=== PATIENT | female | born 1975 | race African-American/Black ===

== ENCOUNTER 2018-12-27 11:21 | Emergency (ER) | payer MEDICAID ==
[~2018-12-27] VITALS: Ht 172.7 cm; Wt 78.9 kg
[~2018-12-27 11:21] MED LIST: POTA20TA83 PO
[2018-12-27 11:35] VITALS: BP_SYST 158
--- NOTE | 2018-12-27 11:35 | NUR ---
Patient to ER bed 02 for evaluation. Side rails up. Report given to Kesha TONG.
--- NOTE | 2018-12-27 11:51 | NUR ---
ER Dr. CHRISTIE at bedside examining patient.
--- NOTE | 2018-12-27 11:53 | NUR ---
PATIENT CAME IN COMPLAINING OF COUGH SINCE SHE GOT BACK FROM [place]. PATIENT STATES SHE HAD SORE THROAT BUT WENT AWAY. PATIENT NOT SPITTING OUT ANYTHING. PATIENT ALSO COMPLAINING OF NUMBNESS IN LEFT 2ND TOE. 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 PATIENT NOT COMPLAINING OF PAIN. PATIENT STATES SHE TOOK TYLENOL BEFORE COMING. PATIENT ALERT AND ORIENTED X4.
--- NOTE | 2018-12-27 12:04 | NUR ---
XRAYS BEING DONE AT BEDSIDE
--- NOTE | 2018-12-27 12:21 | NUR ---
CLEANED UP PATIENT'S TOE WITH NS AND GAUZE. PUT ON BANDAGE.
--- NOTE | 2018-12-27 12:26 | NUR ---
Patient given written and verbal discharge instructions and verbalizes understanding. ER MD Noyola discussed with patient the results and treatment provided. Patient in stable condition. ID arm band removed. Rx of Tevin Gonzalez given. Patient educated on pain management and to follow up with PMD. Pain Scale 0. Opportunity for questions provided and answered. Medication side effect fact sheet provided.
[2018-12-27 12:31] VITALS: BP_SYST 145
== END 2018-12-27 12:26 | disposition home or self-care (01) ==
LOC: SED 11:21
DX: S90.32XA Contusion of left foot, initial encounter (principal); S90.415A Abrasion, left lesser toe(s), initial encounter; I10 Essential (primary) hypertension; Z86.2 Personal history of diseases of the blood and blood-forming organs and certain disorders involving the immune mechanism; W22.8XXA Striking against or struck by other objects, initial encounter; Y93.89 Activity, other specified; Y92.89 Other specified places as the place of occurrence of the external cause; Y99.8 Other external cause status
CPT/HCPCS: 99283

== ENCOUNTER 2019-04-24 08:24 | Emergency (ER) | payer MEDICAID ==
[~2019-04-24] VITALS: Ht 175.3 cm; Wt 90.7 kg
[2019-04-24 08:34] VITALS: BP_SYST 143
[2019-04-24 09:43] LABS: BASOPHILS % (AUTO) 0.5 % (0.0-2.0); EOSINOPHILS # (AUTO) 0.1 K/uL (0.0-0.4); EOSINOPHILS % (AUTO) 1.2 % (0.0-4.0); HEMATOCRIT 39.6 % (36-48); HEMOGLOBIN 12.9 g/dL (12.0-16.0); LYMPHOCYTES # (AUTO) 1.3 K/uL (1.0-5.5); LYMPHOCYTES % (AUTO) 21.5 % (20.5-51.5); MEAN CORPUSCULAR HEMOGLOBIN 31 pg (27-31); MEAN CORPUSCULAR HGB CONC 33 % (32-36); MEAN CORPUSCULAR VOLUME 94 fL (79.0-98.0); MONOCYTES # (AUTO) 0.5 K/uL (0.0-1.0); MONOCYTES % (AUTO) 8.7 % (1.7-9.3); NEUTROPHILS # (AUTO) 4.2 K/uL (1.8-7.7); NEUTROPHILS % (AUTO) 68.1 % (40.0-70.0); PLATELET COUNT (AUTO) 374 K/uL (130-430); WHITE BLOOD COUNT (AUTO) 6.2 K/uL (4.8-10.8)
[2019-04-24 10:00] LABS: CALCIUM 8.8 mg/dL (8.4-11.0); CREATININE 0.72 mg/dL (0.55-1.30); POTASSIUM 3.8 mmol/L (3.5-5.1)
[2019-04-24 10:13] LABS: ALBUMIN 3.6 g/dL (3.4-4.8); FREE T4 (FREE THYROXINE) 0.9 ng/dl (0.8-1.5); THYROID STIMULATING HORMONE 1.38 uIu/mL (0.36-3.74); TOTAL BILIRUBIN 0.2 mg/dL (0.0-1.0)
[2019-04-24 10:43] VITALS: BP_SYST 134
== END 2019-04-24 10:41 | disposition home or self-care (01) ==
LOC: SED 08:24
DX: R00.2 Palpitations (principal); R53.1 Weakness; R06.00 Dyspnea, unspecified; I10 Essential (primary) hypertension; Z86.2 Personal history of diseases of the blood and blood-forming organs and certain disorders involving the immune mechanism; Z79.899 Other long term (current) drug therapy
CPT/HCPCS: 36415; 71045; 80053; 81002; 81025; 82550-TC; 84439; 84443-TC; 84479; 84484; 85025; 85379; 93005; 99284

== ENCOUNTER 2020-05-21 13:06 | Emergency (ER) | payer MEDICAID ==
[~2020-05-21] VITALS: Ht 172.7 cm; Wt 78.9 kg
[2020-05-21 13:06] VITALS: BP_SYST 98
[2020-05-21 15:42] VITALS: BP_SYST 98
== END 2020-05-21 15:40 | disposition home or self-care (01) ==
LOC: SED 13:06
DX: S16.1XXA Strain of muscle, fascia and tendon at neck level, initial encounter (principal); I10 Essential (primary) hypertension; Z86.2 Personal history of diseases of the blood and blood-forming organs and certain disorders involving the immune mechanism; V49.49XA Driver injured in collision with other motor vehicles in traffic accident, initial encounter; Y93.89 Activity, other specified; Y92.413 State road as the place of occurrence of the external cause; Y99.8 Other external cause status
CPT/HCPCS: 71045; 72040-TC; 99284

== ENCOUNTER 2021-05-06 22:09 | Inpatient (IN) | payer MEDICAID, SELFPAY ==
[~2021-05-06] VITALS: Ht 172.7 cm; Wt 108.4 kg
[2021-05-06 22:15] VITALS: BP_SYST 139
--- NOTE | 2021-05-06 22:49 | NUR ---
Patient to ER bed 3 to [facility] for evaluation. Side rails up. Report given to Annie TONG. Addendum: 05/07/21 at 0103 by [email or web address] Amendment undone in EDM - 05/07/21 at 0103 by SDEDCJM chaperoned by myself.
--- NOTE | 2021-05-06 22:54 | NUR ---
PT ARRIVED TO ER FOR COMPLAINTS OF VAGINAL BLEEDING SINCE 04/23/21. PT STATES IT STRATED NOMRLA AND GRADUALLY GOT WORSE. NOW SHE IS CHANGING HER PAD ABOUT EVERY 30 MINS. SHE IS HAVING 6/10 ABDOMNAL PAIN AND 9/10 BACK PAIN. -N/V/D. PT WENT TO HER PRIMARY AND DID A BLOOD DRAW, BUT HAVENT GOTTEN THE RESULTS BACK. PT WAS TOLD BY PMD TO COME TO ER IF GETTING WORSE.
[2021-05-06] MEDS ORDERED: NACL 0.9% 1,000 ML IV ONE (23:15)
[2021-05-06] MEDS ORDERED: KETOROLAC TROMETHAMINE 30 MG VIAL IVP ONE (23:15)
--- NOTE | 2021-05-06 23:24 | NUR ---
# 20 gauge angiocath placed to Lac. Use of asceptic technique. Opsite placed over site. Blood return noted. Blood for lab drawn from site. Flushed with 10 cc of normal saline. No evidence of infiltration noted. Patient tolerated well.
--- NOTE | 2021-05-06 23:25 | NUR ---
Patient transported to radiology via wheelchair for US, accompanied by tech.
--- NOTE | 2021-05-06 23:39 | NUR ---
chaperoned Patient for Transvaginal Ultrasound performed by Robin Invoice Control Clerk. Patient tolerating well. Consent signed by patient and witnessed by this RN
[2021-05-06 23:40] LABS: BASOPHILS % (AUTO) 0.4 % (0.0-2.0); EOSINOPHILS # (AUTO) 0.1 K/uL (0.0-0.4); EOSINOPHILS % (AUTO) 1.2 % (0.0-4.0); HEMATOCRIT 24.5 % (36-48); HEMOGLOBIN 8.3 g/dL (12.0-16.0); LYMPHOCYTES % (AUTO) 18.7 % (20.5-51.5); MEAN CORPUSCULAR HEMOGLOBIN 30 pg (27-31); MEAN CORPUSCULAR HGB CONC 34 % (32-36); MEAN CORPUSCULAR VOLUME 90 fL (79.0-98.0); MONOCYTES # (AUTO) 0.9 K/uL (0.0-1.0); MONOCYTES % (AUTO) 8.3 % (1.7-9.3); NEUTROPHILS # (AUTO) 7.5 K/uL (1.8-7.7); NEUTROPHILS % (AUTO) 71.4 % (40.0-70.0); PLATELET COUNT (AUTO) 297 K/uL (130-430); RED BLOOD CELL COUNT(AUTO) 2.73 MIL/uL (4.2-6.2); RED CELL DISTRIBUTION WIDTH 14.5 % (9.0-15.0); WHITE BLOOD COUNT (AUTO) 10.6 K/uL (4.8-10.8)
[2021-05-06 23:53] LABS: CALCIUM 8.2 mg/dL (8.4-11.0); CREATININE 0.68 mg/dL (0.55-1.30); POTASSIUM 4.1 mmol/L (3.5-5.1)
[2021-05-07 00:20] LABS: BILIRUBIN,URINE NEGATIVE (NEGATIVE); BLOOD, URINE 2+ (NEGATIVE); CLARITY/URINE CLEAR (CLEAR); COLOR,URINE YELLOW (YELLOW); GLUCOSE,URINE NEGATIVE (NEGATIVE); KETONES,URINE NEGATIVE (NEGATIVE); LEUKOCYTE ESTERASE ,URINE NEGATIVE (NEGATIVE); NITRITE, URINE NEGATIVE (NEGATIVE); PROTEIN URINE NEGATIVE (NEGATIVE); UROBILINOGEN,URINE 0.2 (0.2-1.0)
--- NOTE | 2021-05-07 00:39 | NUR ---
DR. MURILLO AT BEDSIDE PERFORMING PELVIC EXAM Addendum: 05/07/21 at 0103 by [email or web address] Chaperoned by myself.
[2021-05-07 00:41] LABS: BACTERIA,URINE FEW /HPF (None Seen); RBC,URINE 20-50 /HPF (0-3); WBC,URINE 0-3 /HPF (0-3)
--- NOTE | 2021-05-07 01:18 | NUR ---
PT IS FULLCODE
--- NOTE | 2021-05-07 01:18 | NUR ---
PT BELONGINGS LIST COMPLETE
--- NOTE | 2021-05-07 01:19 | NUR ---
Medication reconciliation completed with information provided by PT. Any prior medication reconciliation on file was reviewed and corrected.
[2021-05-07] MEDS ORDERED: LISI10TA29 PO (01:23)
[2021-05-07] MEDS ORDERED: FERR236T3 PO (01:23)
[2021-05-07] MEDS ORDERED: HYDR25TA4 PO (01:23)
[2021-05-07] MEDS ORDERED: ESTROGENS,CONJUGATED 25 MG in NS 50 ML IV ONE (01:30)
[2021-05-07] MEDS ORDERED: ESTROGENS,CONJUGATED 25 MG VIAL ONE (01:39)
--- NOTE | 2021-05-07 02:27 | NUR ---
Patient will be admitted to care of dr morley. Admitted to med surg unit. Will go to room tbd. Belongings list completed. Complete and up to date summary report printed. SBAR report to be given at bedside with opportunity for questions.
--- NOTE | 2021-05-07 03:10 | NUR ---
pt being transferred to [facility] surge room 129 B. report given over the phone to nurse
--- NOTE | 2021-05-07 03:21 | NUR ---
ADMISSION NOTES ADMITTED PATIENT FROM ER FOR BLOOD LOSS/VAGINAL BLEED/ANEMIA. PATIENT AAOX4 BREATHING UNLABORED ON ROOM AIR. NO C/O PAIN AT THIS TIME. IV LINE INTACT TO LEFT AC. PATIENT ORIENTED TO CALL LIGHT SYSTEM, BED AND TV REMOTE. BED IN LOWEST LOCKED POSITION. ADMISSION PROCESS INITIATED.
[2021-05-07 03:31] VITALS: BP_SYST 134
[2021-05-07 03:37] VITALS: BP_SYST 134
--- NOTE | 2021-05-07 07:45 | NUR ---
Opening Notes Patient is awake, alert and oriented x4. No resp distress noted. Breathing is even and unlabored. Pt denies any cough/SOB/sore throat. Pt remains on RA at this time. Pt denies any pain at this time. Reports intermittent discomfort in abdomen area. IV site on left AC, 20 gauge intact. Dressing clean and dry, flushing well. Pt reports bright red blood from vaginal area with clots. Per patient, "I have 2-3 soaked pads within a few hours." Pt denies any trauma to area, reported 4 pregnancies: 1 csection, 3 vaginal births. Pt denies taking any blood thinners. Pending NYLON MENDER consult. Pt is ambulatory, steady gait. All needs met at this time. Safety and fall precautions in place. Bed in lowest position, locked. Will continue to monitor.
[2021-05-07 08:00] VITALS: BP_SYST 138
[2021-05-07 08:55] LABS: BASOPHILS # (AUTO) 0.1 K/uL (0.0-0.2); BASOPHILS % (AUTO) 0.7 % (0.0-2.0); EOSINOPHILS # (AUTO) 0.1 K/uL (0.0-0.4); EOSINOPHILS % (AUTO) 1.1 % (0.0-4.0); HEMATOCRIT 22.1 % (36-48); HEMOGLOBIN 7.3 g/dL (12.0-16.0); LYMPHOCYTES # (AUTO) 1.5 K/uL (1.0-5.5); LYMPHOCYTES % (AUTO) 18.9 % (20.5-51.5); MEAN CORPUSCULAR HEMOGLOBIN 30 pg (27-31); MEAN CORPUSCULAR HGB CONC 33 % (32-36); MEAN CORPUSCULAR VOLUME 90 fL (79.0-98.0); MONOCYTES # (AUTO) 0.6 K/uL (0.0-1.0); MONOCYTES % (AUTO) 7.5 % (1.7-9.3); NEUTROPHILS # (AUTO) 5.8 K/uL (1.8-7.7); NEUTROPHILS % (AUTO) 71.8 % (40.0-70.0); PLATELET COUNT (AUTO) 288 K/uL (130-430); RED BLOOD CELL COUNT(AUTO) 2.47 MIL/uL (4.2-6.2); RED CELL DISTRIBUTION WIDTH 14.6 % (9.0-15.0); WHITE BLOOD COUNT (AUTO) 8.1 K/uL (4.8-10.8)
[2021-05-07 09:04] LABS: ALBUMIN 3.1 g/dL (3.4-4.8); CALCIUM 8.2 mg/dL (8.4-11.0); CREATININE 0.74 mg/dL (0.55-1.30); TOTAL BILIRUBIN 0.1 mg/dL (0.0-1.0)
--- NOTE | 2021-05-07 09:05 | NUR ---
Patient is being seen and examined by DR. FERNANDEZ (BRIM RAISER MD). MD to perform pelvic exam.
[2021-05-07 09:28] LABS: TOTAL IRON BIND. CAPACITY 294 ug/dL (250-450)
--- NOTE | 2021-05-07 09:53 | NUR ---
Patient is being seen and examined by DR HANNAH.
--- NOTE | 2021-05-07 10:00 | NUR ---
Notes Patient is awake, alert and oriented x4. No resp distress noted. Breathing is even and unlabored. Pt denies any pain. Pt reports continued vaginal bleeding but is "less bleeding than the previous day." Pt was given peripads. Will continue to monitor.
[2021-05-07] MEDS ORDERED: MULTIVITS,CA,MINERALS/IRON/FA 1 TABLET PO ONE (10:15)
[2021-05-07] MEDS ORDERED: SOD FERRIC GLUC COMPLEX/SUC 125 MG in NS 100 ML IV SCH (10:15)
[2021-05-07] MEDS ORDERED: HYDROCHLOROTHIAZIDE 25 MG TABLET (HCTZ) PO ONE (10:30)
[2021-05-07] MEDS ORDERED: LISINOPRIL 10 MG TABLET (PRINIVIL) PO ONE (10:30)
[2021-05-07 12:00] VITALS: BP_SYST 114
--- NOTE | 2021-05-07 12:00 | NUR ---
Notes Pt is laying in bed, resting at this time. No resp distress noted. Breathing is even and unlabored. Pt denies any pain at this time. Minimal vaginal bleeding noted. Pending discharge. Pt was educated if hgb levels are within normal limits, pt may DC home with Rx prescription. Pt aware and agreed.
[2021-05-07] MEDS ORDERED: MEDR10TA3 PO (13:04)
[2021-05-07] MEDS ORDERED: MULT-1145 PO (13:04)
--- NOTE | 2021-05-07 14:00 | NUR ---
Notes Patient is laying in bed and talking on her cell phone. Fiance is by bedside. Pending lab draw and discharge. No signs of pain or acute distress. Will continue to monitor.
[2021-05-07 14:14] VITALS: BP_SYST 114
[2021-05-07 15:05] LABS: BASOPHILS # (AUTO) 0.1 K/uL (0.0-0.2); BASOPHILS % (AUTO) 0.5 % (0.0-2.0); EOSINOPHILS # (AUTO) 0.1 K/uL (0.0-0.4); HEMATOCRIT 23.9 % (36-48); LYMPHOCYTES # (AUTO) 1.7 K/uL (1.0-5.5); LYMPHOCYTES % (AUTO) 18.4 % (20.5-51.5); MEAN CORPUSCULAR HEMOGLOBIN 30 pg (27-31); MEAN CORPUSCULAR HGB CONC 34 % (32-36); MEAN CORPUSCULAR VOLUME 89 fL (79.0-98.0); MONOCYTES # (AUTO) 0.7 K/uL (0.0-1.0); MONOCYTES % (AUTO) 7.9 % (1.7-9.3); NEUTROPHILS # (AUTO) 6.8 K/uL (1.8-7.7); NEUTROPHILS % (AUTO) 72.2 % (40.0-70.0); PLATELET COUNT (AUTO) 327 K/uL (130-430); RED BLOOD CELL COUNT(AUTO) 2.68 MIL/uL (4.2-6.2); RED CELL DISTRIBUTION WIDTH 14.7 % (9.0-15.0); WHITE BLOOD COUNT (AUTO) 9.4 K/uL (4.8-10.8)
[2021-05-08] MEDS ORDERED: MULTIVITS,CA,MINERALS/IRON/FA 1 TABLET PO SCH (09:00)
[2021-05-08] MEDS ORDERED: HYDROCHLOROTHIAZIDE 25 MG TABLET (HCTZ) PO SCH (09:00)
[2021-05-08] MEDS ORDERED: LISINOPRIL 10 MG TABLET (PRINIVIL) PO SCH (09:00)
== END 2021-05-07 15:50 | disposition home or self-care (01) | DRG 532 ==
LOC: SED 22:09 → SMU 05-07 02:25
PROVIDERS: ADMIT Internal Medicine; ATTEND Internal Medicine
DX: N93.8 Other specified abnormal uterine and vaginal bleeding (principal); D62 Acute posthemorrhagic anemia; E66.9 Obesity, unspecified; I10 Essential (primary) hypertension; Z20.822 Contact with and (suspected) exposure to COVID-19; D50.9 Iron deficiency anemia, unspecified; Z79.899 Other long term (current) drug therapy; Z68.36 Body mass index [BMI] 36.0-36.9, adult
CPT/HCPCS: 36415; 76830-TC; 76857; 80048; 80053; 81000; 83540; 83550; 84703; 85025; 85610-TC; 86886; 86900; 86901; 96361; 96365; 96375; 99291; J1410; J1885; J2916

== ENCOUNTER 2022-04-26 12:50 | Emergency (ER) | payer MEDICAID ==
[~2022-04-26] VITALS: Ht 165.1 cm; Wt 81.6 kg
[~2022-04-26 12:50] MED LIST changes: +FERR236T3 PO; +HYDR25TA4 PO; +LISI10TA29 PO; +MEDR10TA72 PO; +MULT-1145 PO; -POTA20TA83 PO
[2022-04-26 13:31] VITALS: BP_SYST 137
--- NOTE | 2022-04-26 13:31 | NUR ---
Patient to ER bed 2 to gown for evaluation. Side rails up. Report given to ALISHA TONG.
--- NOTE | 2022-04-26 13:35 | NUR ---
Assumed care of pt who came from home c/o headache and facial numbness r/t an injury sustained this past tuesday. Pt states she was retrieving a small appliance from an overhead cupboard and it fell and caused a 1/2in laceration, bleeding and pain to the left side of the head. Pt woke this morning and felt a numb sensation to the left side of the face. Pt denies n/v, LOC, medical or surgical hx, VSS, calm and cooperative. Will provide care as ordered.
--- NOTE | 2022-04-26 14:56 | NUR ---
ER Dr. Ro at bedside examining patient.
[2022-04-26] MEDS ORDERED: MORPHINE 4 MG INJ. 4 MG/ML VIAL IM ONE (15:00)
[2022-04-26] MEDS ORDERED: DIPHTH,PERTUSS(ACELL),TET VAC 0.5 ML VIAL (Tdap) I.M. ONE (15:45)
[2022-04-26] MEDS ORDERED: HYDR-3917 PO (17:40)
[2022-04-26 18:01] VITALS: BP_SYST 141
--- NOTE | 2022-04-26 18:01 | NUR ---
Patient given written and verbal discharge instructions and verbalizes understanding. ER Dr. Jayjay STOREY discussed with patient the results and treatment provided. Patient in stable condition. ID arm band removed. Rx of norco given. Patient educated on pain management and to follow up with PMD. Pain Scale 2/10. Opportunity for questions provided and answered. Medication side effect fact sheet provided.
== END 2022-04-26 18:01 | disposition home or self-care (01) ==
LOC: SED 12:50
DX: S06.0X0A Concussion without loss of consciousness, initial encounter (principal); M54.2 Cervicalgia; I10 Essential (primary) hypertension; Z79.899 Other long term (current) drug therapy; W01.0XXA Fall on same level from slipping, tripping and stumbling without subsequent striking against object, initial encounter; Y93.89 Activity, other specified; Y92.89 Other specified places as the place of occurrence of the external cause; Y99.8 Other external cause status
CPT/HCPCS: 99284; 70450; 76376; 90715; 96372; 90471; J2270

== ENCOUNTER 2023-03-18 22:51 | Emergency (ER) | payer MEDICAID ==
[~2023-03-18] VITALS: Ht 172.7 cm; Wt 86.2 kg
[~2023-03-18 22:51] MED LIST changes: +HYDR-3917 PO
[2023-03-18 23:33] VITALS: BP_SYST 173; PULSE 83; RESP 17; TEMP 97.6; O2SAT 98
[2023-03-19] MEDS ORDERED: IBUP-1969 PO (01:02)
[2023-03-19 01:22] VITALS: BP_SYST 168; PULSE 80; RESP 17; TEMP 97.9; O2SAT 98
== END 2023-03-19 01:22 | disposition home or self-care (01) ==
LOC: SED 22:51
DX: S56.40 Unspecified injury of extensor muscle, fascia and tendon of other and unspecified finger at forearm level (principal); S00.211A Abrasion of right eyelid and periocular area, initial encounter; M20.021 Boutonniere deformity of right finger(s); I10 Essential (primary) hypertension; Z79.899 Other long term (current) drug therapy; W18.40XA Slipping, tripping and stumbling without falling, unspecified, initial encounter; Y93.89 Activity, other specified; Y92.89 Other specified places as the place of occurrence of the external cause; Y99.8 Other external cause status
CPT/HCPCS: 73140-TC; 99283

== ENCOUNTER 2024-04-02 14:42 | Inpatient (IN) | payer MEDICAID ==
[~2024-04-02] VITALS: Ht 172.7 cm; Wt 106.6 kg
[~2024-04-02 14:42] MED LIST changes: +IBUP-1969 PO
[2024-04-02 14:56] VITALS: BP_SYST 151; PULSE 74; RESP 22; TEMP 98.3; O2SAT 98
[2024-04-02] MEDS: ACETAMINOPHEN 500 MG TABLET PO ONE (15:19)
[2024-04-02] MEDS: NITROGLYCERIN 1 INCH (GM) OINT. TP ONE (15:20)
[2024-04-02] MEDS: ASPIRIN 81 MG TAB.CHEW PO ONE (15:21)
[2024-04-02] MEDS: NITROGLYCERIN 0.4 MG TAB.SUBL SL ONE (15:22)
[2024-04-02 15:24] LABS: RED CELL DISTRIBUTION WIDTH 13.5 % (9.0-15.0)
[2024-04-02 15:41] LABS: ANION GAP 9 (5-15); CALCIUM 8.5 mg/dL (8.4-11.0); CARBON DIOXIDE 29 mmol/L (23-29); CHLORIDE 103 mmol/L (98-107); CREATININE 0.95 mg/dL (0.55-1.30); GFR AFRICAN AMERICAN 80 mL/min (>90); GLUCOSE 83 mg/dL (74-106); POTASSIUM 3.9 mmol/L (3.5-5.1); SODIUM SERUM 141 mmol/L (136-145); UREA NITROGEN, BLOOD 8 mg/dL (8-21)
[2024-04-02 15:42] LABS: BASOPHILS % (AUTO) 0.7 % (0.0-2.0); EOSINOPHILS % (AUTO) 0.7 % (0.0-4.0); HEMATOCRIT 40.9 % (36-48); LYMPHOCYTES # (AUTO) 1.8 K/uL (1.0-5.5); LYMPHOCYTES % (AUTO) 28.1 % (20.5-51.5); MEAN CORPUSCULAR HEMOGLOBIN 31 pg (27-31); MEAN CORPUSCULAR HGB CONC 34 % (32-36); MEAN CORPUSCULAR VOLUME 90 fL (79.0-98.0); MONOCYTES # (AUTO) 0.5 K/uL (0.0-1.0); MONOCYTES % (AUTO) 7.9 % (1.7-9.3); NEUTROPHILS % (AUTO) 62.6 % (40.0-70.0); PLATELET COUNT (AUTO) 313 K/uL (130-430); RED BLOOD CELL COUNT(AUTO) 4.55 MIL/uL (4.2-6.2); WHITE BLOOD COUNT (AUTO) 6.3 K/uL (4.8-10.8)
[2024-04-02 15:47] LABS: GFR NON AFRICAN-AMERICAN 66 mL/min (>90)
[2024-04-02 17:12] LABS: FREE T4 (FREE THYROXINE) 0.9 ng/dl (0.8-1.5); THYROID STIMULATING HORMONE 1.04 uIu/mL (0.36-3.74)
[2024-04-02] MEDS: MAGNESIUM SULFATE 50 ML IV ONE (17:18)
[2024-04-02] MEDS: LIDOCAINE/EPI 2% 1:100000 20 ML VIAL INJ ONE (17:38)
[2024-04-02] MEDS ORDERED: ONDANSETRON HCL 4 MG/2 ML VIAL IVP PRN (18:30)
[2024-04-02] MEDS ORDERED: LORazepam 2 MG/ML VIAL IVP PRN (18:30)
[2024-04-02] MEDS ORDERED: ACETAMINOPHEN 325 MG TABLET PO PRN (18:30)
[2024-04-02] MEDS ORDERED: MORPHINE 2 MG/ML INJ. SYRINGE IVP PRN (18:30)
[2024-04-02] MEDS ORDERED: HYDROcodone/ACETAMIN 5-325 MG TAB (NORCO/ VICODIN) PO PRN (18:30)
[2024-04-02] MEDS: ENOXAPARIN SODIUM 30 MG/0.3 ML SYRINGE SUBCUT ONE (18:40)
[2024-04-02 19:19] LABS: BARBITURATE, URINE NEGATIVE (NEG <=200); BENZODIAZEPINE, URINE NEGATIVE (NEG <=150); CANNABINOID, URINE NEGATIVE (NEG <=50); COCAINE, URINE NEGATIVE (NEG <=150); METHAMPHETAMINES SCREEN,URINE NEGATIVE (NEG <=500); OPIATE, URINE NEGATIVE (NEG <=100); PHENCYCLIDINE SCREEN,URINE NEGATIVE (NEG <=25); URINE AMPHETAMINE NEGATIVE (NEG <=500); URINE METHADONE NEGATIVE (NEG <=200); URINE OXYCODONE SCREEN NEGATIVE (NEG <=100)
[2024-04-02 19:20] LABS: UR TRICYCLIC ANTIDEPRESSANTS NEGATIVE (NEG <=300)
[2024-04-02] MEDS: LORazepam 2 MG/ML VIAL IVP ONE (21:52)
[2024-04-02 22:40] VITALS: BP_SYST 141; PULSE 65; RESP 18; TEMP 97.7; O2SAT 93
[2024-04-02 23:25] VITALS: BP_SYST 141; PULSE 65; RESP 18; TEMP 97.7
[2024-04-03 00:30] VITALS: BP_SYST 138; PULSE 81; RESP 18; TEMP 97.7; O2SAT 93
[2024-04-03 08:00] VITALS: O2SAT 95
[2024-04-03] MEDS: HYDROCHLOROTHIAZIDE 25 MG TABLET (HCTZ) PO SCH (09:20)
[2024-04-03] MEDS: ASPIRIN 81 MG TAB.CHEW PO SCH (09:20)
[2024-04-03] MEDS: LISINOPRIL 10 MG TABLET (PRINIVIL) PO SCH (09:20)
[2024-04-03] MEDS: ENOXAPARIN SODIUM 30 MG/0.3 ML SYRINGE SUBCUT SCH (09:21)
[2024-04-03] MEDS ORDERED: HYDR-500 PO (10:12)
[2024-04-03 11:25] VITALS: BP_SYST 117; BP_SYST 138; PULSE 62; PULSE 64; RESP 16; RESP 20; TEMP 96.2; TEMP 97; O2SAT 93; O2SAT 95
== END 2024-04-03 11:38 | disposition home or self-care (01) | DRG 203 ==
LOC: SED 14:42 → STU 18:16 → SMU 22:33 → STU 22:34
PROVIDERS: ADMIT Student in an Organized Health Care Education/Training Program; ATTEND Student in an Organized Health Care Education/Training Program
DX: M94.0 Chondrocostal junction syndrome [Tietze] (principal); E66.9 Obesity, unspecified; I49.3 Ventricular premature depolarization; F32.A Depression, unspecified; F41.9 Anxiety disorder, unspecified; I10 Essential (primary) hypertension; Z79.899 Other long term (current) drug therapy; Z98.891 History of uterine scar from previous surgery; Z68.35 Body mass index [BMI] 35.0-35.9, adult
CPT/HCPCS: 36415; 71045; 80048; 80307; 83735; 83880; 84439; 84443; 84484; 85025; 93005; 93306; 99291; 99292; G0378; J1650; J2060; J3475